=== PATIENT | male | born 1960 | race Caucasian/White ===

== ENCOUNTER → 2019-03-08 | Outpatient (CLI) | payer BC ==
--- NOTE | 2019-03-09 07:45 | XR ---
EXAMINATION TYPE: XR knee complete LT DATE OF EXAM: 03/08/2019 CLINICAL HISTORY: Posterior medial left knee pain and swelling for one month. TECHNIQUE: Three views of the left knee are obtained. COMPARISON: None. FINDINGS: There is no acute fracture/dislocation evident in left knee. The tri-compartment joint sp aces appear aligned however there is medial compartment joint space narrowing and small tricompartmen mateus osteophytes. Medial tibial plateau sclerosis is also seen. Patellofemoral compartment joint spac e narrowing is present. Fabella is incidentally noted. The overlying soft tissue appears unremarkable . IMPRESSION: 1. No acute fracture or dislocation in the left knee. 2. Mild to moderate tricompartmental arthropathy.
== END | disposition home or self-care (01) ==
LOC: RADXRYALE 16:46
PROVIDERS: ATTEND Physician Assistant Medical
DX: M17.12 Unilateral primary osteoarthritis, left knee (principal)

== ENCOUNTER → 2019-10-24 | Outpatient (CLI) | payer BC ==
--- NOTE | 2019-10-26 14:21 | P.ARTDOP ---
Arterial Doppler LOWER EXTREMITY ARTERIAL DOPPLER: DATE OF SERVICE: 10/24/2019 Reason for study: Leg fatigue. Doppler waveforms: Multiphasic bilaterally throughout. Pulse volume recording: []. Pressure gradients: None. Ankle-brachial indices: Greater than 1 bilaterally. Toe brachial indices: Greater than 1 on the right, greater than 1 on the left Impression: Normal study.
== END | disposition home or self-care (01) ==
LOC: RADUSWWP 12:13
PROVIDERS: ATTEND Family Medicine
DX: M79.604 Pain in right leg (principal); M79.605 Pain in left leg
CPT/HCPCS: 93922

== ENCOUNTER 2021-02-07 08:13 | Day surgery (SDC) | payer BC ==
[2021-02-05 10:31] VITALS: BMI 31.7
[~2021-02-07 08:13] MED LIST: LACTATED RINGERS 1,000 ML IV SCH; LIDOCAINE 1% (10MG/ML) FOR IV START INTRADERMA PRN
[2021-02-07 08:31] VITALS: TEMP 97.2
[2021-02-07] MEDS ORDERED: PROPOFOL 10 MG/ML 20 ML VIAL IV ONE (08:59)
[2021-02-07 09:29] VITALS: RESP 18
--- NOTE | 2021-02-07 09:32 | P.PCN ---
Date of Procedure: 02/07/21 Description of Procedure: BRIEF HISTORY: Patient is a 60-year-old male presenting for outpatient colonoscopy for personal history of colon polyps and tubular adenoma. Last colonoscopy approximately 6 years ago per patient recollection. No change in bowel habits or blood per rectum. He does report family history of colon cancer in his grandfather. PROCEDURE PERFORMED: Colonoscopy with polypectomy. PREOPERATIVE DIAGNOSIS: History of colon polyps, personal history of tubular adenoma, patient reports left colonoscopy 6 years ago, family history of colon cancer in his grandfather. ESTIMATED BLOOD LOSS: Minimal. IV sedation per Anesthesia. PROCEDURE: After informed consent was obtained, the patient, was brought into the endoscopy unit. IV sedation was administered by Anesthesia under continuous monitoring. Digital rectal examination was normal. Initially the Olympus CF-190 flexible video colonoscope was then inserted in the rectum, gradually advanced into the cecum without any difficulty. Careful examination was performed as the scope was gradually being withdrawn. Ileocecal valve and the appendiceal orifice were visualized and appeared normal. Prep was excellent. Mucosa of the cecum, ascending colon, transverse colon, descending colon, sigmoid colon, and rectum appeared normal, with multiple small large mouthed diverticula noted throughout the entire colon. Sessile 4 mm rectal polyp removed with cold snare polypectomy. Retroflexion was performed in the rectum and no lesions were seen, low-grade internal hemorrhoids seen. The patient tolerated the procedure well. IMPRESSION: Rectal polyp removed with cold snare polypectomy. Moderate pandiverticulosis. RECOMMENDATIONS: Findings of this examination were discussed with the patient and his family. Okay to resume diet. Okay to resume medications. Await pathology from polypectomy. Recommend repeat colonoscopy in 5 years for personal history of colon polyps and family history of colon cancer.
[2021-02-07 09:43] VITALS: BP 123/81; PULSE 70
== END 2021-02-07 10:09 | disposition home or self-care (01) ==
LOC: ORWHC2ENDO 08:13
PROVIDERS: ATTEND Internal Medicine
DX: Z12.11 Encounter for screening for malignant neoplasm of colon (principal); K57.30 Diverticulosis of large intestine without perforation or abscess without bleeding; Z80.0 Family history of malignant neoplasm of digestive organs; Z86.010 Personal history of colon polyps; K64.8 Other hemorrhoids; K21.9 Gastro-esophageal reflux disease without esophagitis; Z98.890 Other specified postprocedural states; I10 Essential (primary) hypertension; M19.90 Unspecified osteoarthritis, unspecified site; Z79.82 Long term (current) use of aspirin; Z79.899 Other long term (current) drug therapy; Z91.048 Other nonmedicinal substance allergy status
CPT/HCPCS: 88305; 45385; J2704

== ENCOUNTER → 2022-10-21 | Outpatient (CLI) | payer BC ==
--- NOTE | 2022-10-22 07:32 | XR ---
EXAMINATION TYPE: XR cervical spine 5 views comp DATE OF EXAM: 10/21/2022 COMPARISON: None HISTORY: 61-year-old male cervicalgia, CDD, M542, [id number] FINDINGS: Normal odontoid view. [id number] degenerative disc disease and endplate spondylosis C5-C6 and C6-C7. No predental spa ce widening or prevertebral soft tissue swelling. Alignment is maintained. Uncovertebral joint and fa cet arthropathy mid to lower cervical spine. On the left, there is moderate to severe bony neural foraminal narrowing at C6-C7 and moderate at C5- C6. On the right, there is moderate to severe bony neural foraminal narrowing at C5-C6 and mild at C4-C5. IMPRESSION: Moderate spondylotic changes especially C5-C7 levels. Moderate to severe bony neural foraminal narrow ing on the left at C6-C7 and on the right at C5-C6. No malalignment.
== END | disposition home or self-care (01) ==
LOC: RADXRYALE 16:56
PROVIDERS: ATTEND Family Medicine
DX: M47.812 Spondylosis without myelopathy or radiculopathy, cervical region (principal); M50.322 Other cervical disc degeneration at C5-C6 level; M99.71 Connective tissue and disc stenosis of intervertebral foramina of cervical region
CPT/HCPCS: 72050

== ENCOUNTER → 2025-02-08 | Outpatient (CLI) | payer MEDICARE ==
--- NOTE | 2025-02-08 09:36 | US ---
EXAMINATION TYPE: US prostate transrectal DATE OF EXAM: 02/08/2025 COMPARISON: NONE CLINICAL INDICATION: Male, 64 years old with history of R97.20 ELEVATED PROSTATE SPECIFIC ANTIGEN [PS A]; Elevated PSA TECHNIQUE: Grayscale and color Doppler imaging of the prostate gland. This examination was performed using the transrectal probe. EXAM MEASUREMENTS: Gland Size: 5.7 x 4.2 x 5.6 cm Volume: 70.7 ml Predicted PSA: 8.5 Actual PSA (if available): 7.9 on 01/25/25 Enlarged, heterogeneous gland. No definite lesion visualized within peripheral zone. IMPRESSION: 1. No suspicious masses visualized. 2. Note that prostate MRI is a more sensitive exam for the detection of clinically significant prost ate adenocarcinoma. 3. Prostatic hypertrophy Predicted PSA = volume x 0.12 ng/ml Calculated Volume = 0.5236 x L x W x [facility], , 02/08/2025 9:33 AM
== END | disposition home or self-care (01) ==
LOC: RADUSWWP 08:24
PROVIDERS: ATTEND Family Medicine
DX: N40.0 Benign prostatic hyperplasia without lower urinary tract symptoms (principal); R97.20 Elevated prostate specific antigen [PSA]
CPT/HCPCS: 76872